=== PATIENT | female | born 1970 | race Caucasian/White ===

== ENCOUNTER 2020-11-10 05:18 | Day surgery (SDC) | payer OTHER ==
[~2020-11-10] VITALS: Ht 160 cm; Wt 63.7 kg
[~2020-11-10 05:18] MED LIST: ALLERGY SHOTS IM; ASCO100018 PO; CHOL500045 PO; CYAN1TAB6 PO; ESTRIOL TP; FAMC500T4 PO; FAMCICLOVIR PO; FLAGYL PO; HYDR-3248 PO; MULT-658 PO; PRAS25CA6 PO; PROGESTERONE TP; THYR60TA4 PO; Vitamin b12 INJ; ZINC50CA PO; magnesium glycinate PO; nasocort INH; primrose oil PO
[2020-11-10 05:56] VITALS: BP 156/105
[2020-11-10] MEDS ORDERED: LACTATED RINGERS 1,000 ML IV SCH (06:00)
[2020-11-10] MEDS ORDERED: CHLORHEXIDINE 15 ML UDC PO ONE (06:00)
[2020-11-10 06:23] VITALS: BP 146/94
[2020-11-10] MEDS ORDERED: BUPIVACAINE/PF 0.5% ONE (06:26)
[2020-11-10] MEDS ORDERED: FENTANYL PF 100 MCG/2ML ONE ×3 (06:41→07:58)
[2020-11-10] MEDS ORDERED: MIDAZOLAM 1 MG/ML, 2ML ONE (06:41)
[2020-11-10] MEDS ORDERED: HYDROmorphone 1 MG/ML, 1ML INJ ONE ×2 (06:41→08:10)
[2020-11-10] MEDS ORDERED: PROPOFOL 10 MG/ML, 20ML ONE (06:52)
[2020-11-10] MEDS ORDERED: DEXAMETHASONE 4 MG/ML, 1ML ONE (06:52)
[2020-11-10] MEDS ORDERED: CEFAZOLIN 1,000 MG ONE (06:52)
[2020-11-10] MEDS ORDERED: ONDANSETRON 2MG/ML, 2ML ONE (06:52)
[2020-11-10] MEDS ORDERED: hydrALAzine 20 MG/ML, 1ML IV PRN (07:00)
[2020-11-10] MEDS ORDERED: METOCLOPRAMIDE 5 MG/ML, 2ML IVPush PRN (07:00)
[2020-11-10] MEDS ORDERED: MEPERIDINE/PF 25MG/0.5ML IVPush PRN (07:00)
[2020-11-10] MEDS ORDERED: KETOROLAC 30 MG/1 ML IVPush PRN (07:00)
[2020-11-10] MEDS ORDERED: HALOPERIDOL 5 MG/ML IV PRN (07:00)
[2020-11-10] MEDS ORDERED: PROMETHAZINE 25 MG/ML, 1ML IVPush PRN (07:00)
[2020-11-10] MEDS ORDERED: ACETAMINOPHEN 325 MG TABLET PO PRN (07:00)
[2020-11-10] MEDS ORDERED: DIAZEPAM 5 MG/ML, 2ML IVPush PRN (07:00)
[2020-11-10] MEDS ORDERED: METOPROLOL 1 MG/ML, 5ML IV PRN (07:00)
[2020-11-10] MEDS ORDERED: ONDANSETRON 2MG/ML, 2ML IVPush PRN (07:00)
[2020-11-10] MEDS ORDERED: OXYcodone 5 MG/5 ML ORAL.SOL UDC PO PRN (07:00)
[2020-11-10] MEDS ORDERED: EPHEDRINE 50 MG/ML, 1ML IVPush PRN (07:00)
[2020-11-10] MEDS ORDERED: HYDROmorphone 1 MG/ML, 1ML INJ IVPush PRN (07:00)
[2020-11-10] MEDS ORDERED: DIPHENHYDRAMINE 50 MG/ML, 1ML IVPush PRN (07:00)
[2020-11-10] MEDS ORDERED: LABETALOL 5MG/ML, 20ML IV PRN (07:00)
[2020-11-10] MEDS: FENTANYL PF 100 MCG/2ML IV PRN ×4 (07:50→08:05)
[2020-11-10] MEDS ORDERED: ACETAMINOPHEN 650 MG/20.3 ML UDC ONE (07:51)
[2020-11-10] MEDS ORDERED: OXYcodone 5 MG/5 ML ORAL.SOL UDC ONE (07:51)
[2020-11-10] MEDS ORDERED: KETOROLAC 30 MG/1 ML ONE (08:10)
== END 2020-11-10 09:27 | disposition home or self-care (01) ==
LOC: OUT 05:18
PROVIDERS: ATTEND Orthopaedic Surgery
DX: S52.552A Other extraarticular fracture of lower end of left radius, initial encounter for closed fracture (principal); E03.9 Hypothyroidism, unspecified; Z20.822 Contact with and (suspected) exposure to COVID-19; Z79.891 Long term (current) use of opiate analgesic; W17.89XA Other fall from one level to another, initial encounter; Y93.89 Activity, other specified; Y92.89 Other specified places as the place of occurrence of the external cause; Y99.8 Other external cause status
CPT/HCPCS: 25607; 73100; C1713; C1776; J0690; J1100; J1885; J2250; J2405; J2704; J3010; J7120; U0003; U0005; 76000; J1170